=== PATIENT | female | born 1950 | race Caucasian/White ===

== ENCOUNTER 2017-05-17 13:55 | Emergency (ER) | payer BC, OTHER ==
[2017-05-17] MEDS ORDERED: Acetaminophen 325 MG Tab PO ONE (14:09)
[2017-05-17] MEDS ORDERED: Ibuprofen 600 MG Tab PO ONE (14:09)
--- NOTE | 2017-05-17 14:11 | EDM.PDOC ---
[id number]/05/17 13:55 Source of Information: Reports: Patient, Family History Limitations: Reports: No Limitations - History of Present Illness INITIAL COMMENTS - FREE TEXT/NARRATIVE: 66 y[place], came to the ed due to F/C and cough, temp went from 101 to 102. Pt took tylenol which brought her temp down, not below 100F, however. Pt takes Atacand for her HTN. No N/V/D, does not smoke. Pt drank a " lot of bottled water". Onset: Gradual Onset Date: 05/16/17 Onset Time: 06:00 Duration: Getting Worse - Related Data Allergies Allergy/AdvReac Type Severity Reaction Status Date / Time amlodipine [From Caduet] Allergy Cannot Verified 05/17/17 14:40 Remember atorvastatin [From Caduet] Allergy Cannot Verified 05/17/17 14:40 Remember fosinopril [From Monopril] Allergy Redness Verified 05/17/17 14:40 hydrochlorothiazide Allergy Redness Verified 05/17/17 14:40 meperidine [From Demerol] Allergy Cannot Verified 05/17/17 14:40 Remember Sulfa (Sulfonamide Allergy Cannot Verified 05/17/17 14:40 Antibiotics) Remember tetracycline Allergy Cannot Verified 05/17/17 14:40 Remember Home Meds: Home Meds Ascorbic Acid [Vitamin C] 1 tab PO DAILY 05/17/17 [History] Calcium Carbonate/Vitamin D3 [Calcium 500 + Vit D 400] 1 tab PO DAILY 05/17/17 [ History] Candesartan [Atacand] 1 tab PO DAILY 05/17/17 [History] Cholecalciferol (Vitamin D3) [Vitamin D3] 1,000 unit PO DAILY 05/17/17 [History] Esomeprazole Magnesium [Nexium] 1 cap PO DAILY 05/17/17 [History] Levofloxacin 500 mg PO DAILY #10 tablet 05/17/17 [Rx] Multivitamin [Multivitamins] 1 cap PO DAILY 05/17/17 [History] Rosedale-3 Fatty Acids [Rosedale-3] 1 tab PO DAILY 05/17/17 [History] ED ROS GENERAL - Review of Systems Review Of Systems: See Below Constitutional: Reports: Fever, Chills, Decreased Appetite HEENT: Reports: Ear Pain, Sinus Problem Respiratory: Reports: Wheezing, Cough, Sputum Cardiovascular: Reports: No Symptoms Endocrine: Reports: No Symptoms GI/Abdominal: Reports: No Symptoms : Reports: No Symptoms Musculoskeletal: Reports: No Symptoms Skin: Reports: No Symptoms Neurological: Reports: No Symptoms Psychiatric: Reports: No Symptoms Hematologic/Lymphatic: Reports: No Symptoms Immunologic: Reports: No Symptoms ED EXAM, GENERAL - Physical Exam Exam: See Below Exam Limited By: No Limitations General Appearance: Alert, WD/WN, Mild Distress Eye Exam: Bilateral Eye: Normal Inspection Ears: Normal External Exam Ear Exam: Bilateral Ear: Auricle Normal Nose: Normal Inspection, Normal Mucosa Throat/Mouth: Normal Inspection, Normal Lips Head: Atraumatic, Normocephalic Neck: Normal Inspection, Supple, Non-Tender Respiratory/Chest: Decreased Breath Sounds (LLL of lung), Wheezing Cardiovascular: Normal Peripheral Pulses, Regular Rate, Rhythm, No Edema, No JVD Peripheral Pulses: 2+: Femoral (L), Femoral (R) GI/Abdominal: Normal Bowel Sounds, Soft, Non-Tender, No Organomegaly Back Exam: Normal Inspection, Full Range of Motion Extremities: Normal Inspection, Normal Range of Motion, Non-Tender, No Pedal Edema Neurological: Alert, Oriented, CN II-XII Intact, Normal Cognition, Normal Gait Psychiatric: Normal Affect, Normal Mood Skin Exam: Warm, Dry, Intact, Normal Color Lymphatic: No Adenopathy Course - Vital Signs Text/Narrative:: 66 y.o.w[place], came to the ed due to F/C and cough, temp went from 101 to 102. Pt took tylenol which brought her temp down, not below 100F, however. Pt takes Atacand for her HTN. No N/V/D, does not smoke. Pt drank a " lot of bottled water". has "sinus pain" a well. PE: dullnes to percussion LLL of lung, mild wheezes, improved with cough Imaging: CXR 2 viewL Lingula and LLL infiltrate as per RAD Labs: Na 131, K 4.0 WBC nl UA is pending BCx are pending Impression: Pneumonia left lower lobe and lingula, Hyponatremia (131) Tx: NS, Levoquin, Duoneb, Tylenol, Motrin. Reexam: Improved. Plan: D/C with instructions. Last Recorded V/S: Last Vital Signs Temp 36.9 C 05/17/17 17:23 Pulse 81 05/17/17 17:23 Resp 14 05/17/17 17:23 BP 137/65 05/17/17 17:23 Pulse Ox 97 05/17/17 17:23 - Orders/Labs/Meds Labs: Laboratory Tests 05/17/17 05/17/17 05/17/17 Range/Units 14:15 14:15 14:15 WBC 9.8 (4.5-12.0) X10-3/uL RBC 3.44 L (4.30-5.75) x10(6)uL Hgb 10.6 L (11.5-15.5) g/dL Hct 31.1 (30.0-51.3) % MCV 90.4 (80-96) fL MCH 30.7 (27.7-33.6) pg MCHC 34.0 (32.2-35.4) g/dL RDW 13.0 (11.5-15.5) % Plt Count 324 (125-369) X10(3)uL MPV 7.6 (7.4-10.4) fL Neut % (Auto) 85.0 H (46-82) % Lymph % (Auto) 7.0 L (13-37) % Pershing % (Auto) 7.1 (4-12) % Eos % (Auto) 0 L (1.0-5.0) % Baso % (Auto) 1 (0-2) % Neut # (Auto) 8.4 H (1.6-8.3) # Lymph # (Auto) 0.7 (0.6-5.0) # Pershing # (Auto) 0.7 (0.0-1.3) # Eos # (Auto) 0.0 (0.0-0.8) # Baso # (Auto) 0.0 (0.0-0.2) # Sodium 131 L (135-145) mmol/L Potassium 4.0 (3.5-5.3) mmol/L Chloride 98 L (100-110) mmol/L Carbon Dioxide 24 (23-29) mmol/L BUN 13 (8-23) mg/dL Creatinine 1.0 (0.6-1.3) mg/dL Est Cr Clr Drug Dosing TNP Estimated GFR (MDRD) > 60 (>60) BUN/Creatinine Ratio 13.0 (9-20) Glucose 121 H (80-116) mg/dL Lactic Acid 1.0 (0.5-2.2) mmol/L Calcium 9.0 (8.6-10.2) mg/dL Urine Color (YELLOW) Urine Appearance (CLEAR) Urine pH (5.0-6.5) Ur Specific Joes (1.010-1.025) Urine Protein (NEGATIVE) mg/dL Urine Glucose (UA) (NEGATIVE) mg/dL Urine Ketones (NEGATIVE) mg/dL Urine Occult Blood (NEGATIVE) Urine Nitrite (NEGATIVE) Urine Bilirubin (NEGATIVE) Urine Urobilinogen (NEGATIVE) mg/dL Ur Leukocyte Esterase (NEGATIVE) Urine RBC (0) Urine WBC (0) Ur Squamous Epith Cells (NS,R,O) Urine Bacteria (NS) 05/17/17 Range/Units 15:05 WBC (4.5-12.0) X10-3/uL RBC (4.30-5.75) x10(6)uL Hgb (11.5-15.5) g/dL Hct (30.0-51.3) % MCV (80-96) fL MCH (27.7-33.6) pg MCHC (32.2-35.4) g/dL RDW (11.5-15.5) % Plt Count (125-369) X10(3)uL MPV (7.4-10.4) fL Neut % (Auto) (46-82) % Lymph % (Auto) (13-37) % Pershing % (Auto) (4-12) % Eos % (Auto) (1.0-5.0) % Baso % (Auto) (0-2) % Neut # (Auto) (1.6-8.3) # Lymph # (Auto) (0.6-5.0) # Pershing # (Auto) (0.0-1.3) # Eos # (Auto) (0.0-0.8) # Baso # (Auto) (0.0-0.2) # Sodium (135-145) mmol/L Potassium (3.5-5.3) mmol/L Chloride (100-110) mmol/L Carbon Dioxide (23-29) mmol/L BUN (8-23) mg/dL Creatinine (0.6-1.3) mg/dL Est Cr Clr Drug Dosing Estimated GFR (MDRD) (>60) BUN/Creatinine Ratio (9-20) Glucose (80-116) mg/dL Lactic Acid (0.5-2.2) mmol/L Calcium (8.6-10.2) mg/dL Urine Color Yellow (YELLOW) Urine Appearance Clear (CLEAR) Urine pH 6.0 (5.0-6.5) Ur Specific Joes 1.015 (1.010-1.025) Urine Protein Negative (NEGATIVE) mg/dL Urine Glucose (UA) Normal (NEGATIVE) mg/dL Urine Ketones Negative (NEGATIVE) mg/dL Urine Occult Blood Moderate H (NEGATIVE) Urine Nitrite Negative (NEGATIVE) Urine Bilirubin Negative (NEGATIVE) Urine Urobilinogen Normal (NEGATIVE) mg/dL Ur Leukocyte Esterase Negative (NEGATIVE) Urine RBC 0-5 (0) Urine WBC 0-5 (0) Ur Squamous Epith Cells Occasional (NS,R,O) Urine Bacteria Few H (NS) Meds: Medications Discontinued Medications Generic Name Dose Route Start Last Admin Trade Name Lenardq PRN Reason Stop Dose Admin Acetaminophen 650 mg 05/17/17 14:09 05/17/17 14:53 Tylenol PO 05/17/17 14:10 650 mg NOW ONE Administration Albuterol/Ipratropium 3 ml 05/17/17 16:16 05/17/17 16:29 Duoneb 3.0-0.5 Mg/3 Ml NEB 05/17/17 16:17 3 ml ONETIME ONE Administration Sodium Chloride 1,000 mls @ 999 mls/hr 05/17/17 15:13 05/17/17 15:32 Normal Saline IV 05/17/17 16:13 999 mls/hr .BOLUS ONE Administration Levofloxacin/Dextrose 750 mg/ 150 mls @ 100 mls/hr 05/17/17 15:15 05/17/17 15 :52 Premix IV 05/17/17 16:44 100 mls/hr ONETIME ONE Administration Ibuprofen 600 mg 05/17/17 14:09 05/17/17 14:53 Motrin PO 05/17/17 14:10 600 mg ONETIME ONE Administration Departure - Departure Time of Disposition: 15:00 Disposition: Home, Self-Care 01 Condition: Good Clinical Impression: Pneumonia, community acquired, Hyponatremia - Discharge Information Prescriptions: Levofloxacin 500 mg PO DAILY #10 tablet Referrals: PCP,None [Primary Care Provider] -
[2017-05-17] MEDS ORDERED: Sodium Chloride 0.9% 1,000 ML IV ONE (15:13)
[2017-05-17] MEDS ORDERED: Levofloxacin/Dextrose 5%-Water 750 MG in Premix Bag 1 BAG IV ONE (15:15)
--- NOTE | 2017-05-17 15:38 | CR ---
INDICATION: Cough and fever. CHEST: PA and lateral views of the chest were obtained 05/17/2017. No comparisons were available. The heart appears to be at the upper limits of normal in size with mild LVE suggested on the lateral view. The aorta is tortuous with calcification in the arch. Dextroconcave scoliosis of mild to moderate degree is noted in the upper middle thoracic spine. There is blunting of the posterior sulci compatible with minimal pleuritis bilaterally, with a fairly large amount of infiltrate seen at the left lung base, compatible with pneumonia in the left lower lobe and lingula. A degree of consolidation is present, although it is mostly patchy. Very minimal pneumonia and pleuritis is suggested on the right comparatively. Diaphragm leaves are slightly flattened with hyperaeration and slightly prominent AP diameter, suggesting the possibility of COPD additionally. IMPRESSION: 1. Mostly left basilar pneumonia and pleuritis. Suggestion of very minimal pneumonia and pleuritis at the right lung base also, however. 2. ASHD with mild LVE. 3. Scoliosis. 4. COPD. Report was given by phone to Dr. Yi at approximately 1512 hours, 2016. [facility]
[2017-05-17] MEDS ORDERED: Albuterol/Ipratropium 3.0-0.5 MG/3 ML Neb Soln NEB ONE (16:16)
[2017-05-17 17:25] VITALS: BP 137/65
== END 2017-05-17 17:23 | disposition home or self-care (01) ==
LOC: EDBD → EDSEX 13:55 → FB.ED 13:55
DX: J18.8 Other pneumonia, unspecified organism (principal); E87.1 Hypo-osmolality and hyponatremia; I25.10 Atherosclerotic heart disease of native coronary artery without angina pectoris; I10 Essential (primary) hypertension; J44.9 Chronic obstructive pulmonary disease, unspecified; M41.9 Scoliosis, unspecified; Z79.899 Other long term (current) drug therapy; Z88.1 Allergy status to other antibiotic agents; Z88.2 Allergy status to sulfonamides; Z88.8 Allergy status to other drugs, medicaments and biological substances
CPT/HCPCS: 36415; 71020; 80048; 81001; 83605; 85025; 87040; A9270; J1956; J7040; J7620; 94640; 96365; 99284